=== PATIENT | female | born 1965 | race Caucasian/White ===

== ENCOUNTER → 2016-04-30 | Outpatient (CLI) | payer OTHER ==
--- NOTE | 2016-04-30 17:08 | XR ---
EXAMINATION TYPE: XR chest 2V DATE OF EXAM: 04/30/2016 5:04 PM COMPARISON: 11/19/2015 HISTORY: Chest pain TECHNIQUE: Frontal and lateral views of the chest are obtained. FINDINGS: Heart and mediastinum are normal. Lungs are clear of consolidation. There is minimal subse gmental atelectasis at the right lung base. There are no hilar masses. Bony thorax is intact. IMPRESSION: Mild subsegmental atelectasis at the right lung base without change compared to old exam . Normal heart.
== END | disposition home or self-care (01) ==
LOC: RADXRMAIN 16:49
PROVIDERS: ATTEND Family Medicine
DX: J98.11 Atelectasis (principal); J44.9 Chronic obstructive pulmonary disease, unspecified
CPT/HCPCS: 71020

== ENCOUNTER → 2016-08-23 | Outpatient (CLI) | payer OTHER ==
--- NOTE | 2016-08-23 14:21 | XR ---
Thoracic spine HISTORY: Back pain 2 views of the thoracic spine on 3 images Postop change noted incidentally in the lower cervical spine. Thoracic vertebral bodies show preserve d height, alignment, and bone mineralization. There is multilevel spondylosis. Disc spaces relatively maintained IMPRESSION: Degenerative disc disease.
== END | disposition home or self-care (01) ==
LOC: RADXRMAIN 13:15
PROVIDERS: ATTEND Family Medicine
DX: M51.34 Other intervertebral disc degeneration, thoracic region (principal)
CPT/HCPCS: 72072

== ENCOUNTER → 2016-10-11 | Outpatient (CLI) | payer OTHER ==
--- NOTE | 2016-10-11 08:54 | US ---
EXAMINATION TYPE: US abdomen complete DATE OF EXAM: 10/11/2016 COMPARISON: Previous study dated 01/23/2014. CLINICAL HISTORY: R94.5 ABN LIVER FUNCTIONS. ABN LFT's EXAM MEASUREMENTS: Liver Length: 20.0 cm Gallbladder Wall: 0.2 cm CBD: 0.5 cm Spleen: 8.9 cm Right Kidney: 10.8 x 4.1 x 4.5 cm Left Kidney: 10.6 x 5.2 x 5.0 cm Pancreas: wnl, tail obscured by overlying bowel gas Liver: Enlarged, heterogeneous with fatty sparing near GB Gallbladder: wnl Evidence for sonographic Vuogn's sign: No CBD: wnl Spleen: wnl Right Kidney: wnl Left Kidney: wnl Upper IVC: wnl Abd Aorta: wnl Limited views of the pancreas are normal. The liver is enlarged measuring 20 cm. The liver parenchyma slightly heterogenous. There is some foca l fatty sparing near the gallbladder fossa. The gallbladder is normal. There is no evidence of cholelithiasis. The gallbladder wall measures 2 mm . The distal common hepatic duct measures 5 mm. Both kidneys are normal. The spleen is normal in size. Visualized portions of aorta and IVC are normal. IMPRESSION: HEPATOMEGALY WITH PROBABLE FATTY INFILTRATION OF THE LIVER.
== END | disposition home or self-care (01) ==
LOC: RADUSWWP 08:23
PROVIDERS: ATTEND Family Medicine
DX: R16.0 Hepatomegaly, not elsewhere classified (principal); R94.5 Abnormal results of liver function studies
CPT/HCPCS: 76700

== ENCOUNTER → 2018-03-06 | Outpatient (CLI) | payer OTHER ==
--- NOTE | 2018-03-06 14:00 | XR ---
EXAMINATION TYPE: XR chest 2V DATE OF EXAM: 03/06/2018 COMPARISON: 04/30/2016 TECHNIQUE: PA and lateral views submitted. HISTORY: COPD and difficulty breathing FINDINGS: The lungs are clear and there is no pneumothorax, pleural effusion, or focal pneumonia. Arthropathy of the shoulders. Postsurgical change overlying the cervical spine. No overt failure. Hypertrophic c hanges of vertebral column. IMPRESSION: 1. No acute process.
== END ==
LOC: RADXRMAIN 13:14
PROVIDERS: ATTEND Family Medicine
DX: J44.1 Chronic obstructive pulmonary disease with (acute) exacerbation (principal)
CPT/HCPCS: 71046

== ENCOUNTER 2018-04-05 11:55 | Emergency (ER) | payer OTHER ==
[2018-04-05 12:01] VITALS: BP 128/83; PULSE 107; RESP 18; TEMP 98.2
--- NOTE | 2018-04-05 12:25 | ED ---
Female Urogenital HPI - General Chief complaint: Urogenital Stated complaint: painful urination Time Seen by Provider: 04/05/18 12:07 Source: patient, RN notes reviewed Mode of arrival: ambulatory Limitations: no limitations - History of Present Illness Initial comments: 52-year-old female presented emergency department with chief complaint of dysuria. Patient states started last 24 hours. Patient states that she has urinary frequency, small urine output at that time. Denies any flank pain, fever or chills. She does have some lower abdominal discomfort. Patient has had prior kidney stones and prior urinary tract infection. Patient denies any nausea vomiting diarrhea constipation. - Related Data Home Medications Medication Instructions Recorded Confirmed Albuterol Nebulized [Ventolin 2.5 mg INHALATION RT-Q4H PRN 09/04/15 04/05/18 Nebulized] Gabapentin [Neurontin] 100 mg PO TID PRN 04/05/18 04/05/18 Previous Rx's Medication Instructions Recorded Cephalexin [Keflex] 500 mg PO Q8HR #21 cap 04/05/18 Phenazopyridine [Pyridium] 200 mg PO TID #6 tablet 04/05/18 Allergies Allergy/AdvReac Type Severity Reaction Status Date / Time adhesive tape Allergy Rash/Hives Verified 04/05/18 12:21 pseudoephedrine sulfate Allergy Unknown Verified 04/05/18 12:21 [From Claritin-D 12 Hour] loratadine AdvReac Unknown Verified 04/05/18 12:21 sulfamethoxazole AdvReac Itching Verified 04/05/18 12:21 [From Bactrim] trimethoprim [From Bactrim] AdvReac Itching Verified 04/05/18 12:21 Review of Systems ROS Statement: Those systems with pertinent positive or pertinent negative responses have been documented in the HPI. ROS Other: All systems not noted in ROS Statement are negative. Past Medical History Past Medical History: Asthma, COPD, GERD/Reflux, Hearing Disorder / Deafness, Liver Disease, Osteoarthritis (OA), Pneumonia Additional Past Medical History / Comment(s): CHRONIC COUGH/SINUS PROBLEMS/DIFF HEARING LT ear, uterine FIBROIDS-hysterectomy, pancreatitis, bronchits, "had x1 seizure after taking claritin d", uti's kidney stone-passed on her own, cervical pain with recent surgery and post op abscess treated with ABX, "spinal stenosis", back pain, "abd hernia", fatty liver, glaucoma bilaterally. History of Any Multi-Drug Resistant Organisms: MRSA Date of last positivie culture/infection: 09/2012 MDRO Source:: Lungs Past Surgical History: Breast Surgery, Hysterectomy Additional Past Surgical History / Comment(s): 12/08/15 cervical fusion, BREAST AUGMENTATION bilaterally, colonoscopy-normal, x2, D&C, bilateral eye surgery twice for glaucoma. Past Anesthesia/Blood Transfusion Reactions: Motion Sickness Additional Past Anesthesia/Blood Transfusion Reaction / Comment(s): clausterphobia Past Psychological History: Depression Smoking Status: Current every day smoker Past Alcohol Use History: Occasional Past Drug Use History: Marijuana - Past Family History Mother Family Medical History: Congestive Heart Failure (CHF), Diabetes Mellitus, Hyperlipidemia, Hypertension Additional Family Medical History / Comment(s): pacemaker/aicd Father Family Medical History: Myocardial Infarction (ME) Additional Family Medical History / Comment(s): CABG General Exam Limitations: no limitations General appearance: alert, in no apparent distress Head exam: Present: atraumatic, normocephalic, normal inspection Respiratory exam: Present: normal lung sounds bilaterally. Absent: respiratory distress, wheezes, rales, rhonchi, stridor Cardiovascular Exam: Present: regular rate, normal rhythm, normal heart sounds. Absent: systolic murmur, diastolic murmur, rubs, gallop, clicks GI/Abdominal exam: Present: soft, normal bowel sounds. Absent: distended, tenderness, guarding, rebound, rigid Back exam: Absent: CVA tenderness (R), CVA tenderness (L) Skin exam: Present: warm, dry, intact, normal color. Absent: rash Course Vital Signs 04/05/18 11:58 Temperature 98.2 F Pulse Rate 107 H Respiratory 18 Rate Blood Pressure 128/83 O2 Sat by Pulse 99 Oximetry Medical Decision Making - Medical Decision Making 52-year-old female presented emergency department for urinary frequency, dysuria. Patient went of urinary tract infection. She has no flank pain no localized abdominal pain. Patient treated with antibiotics at this time will also be given Pyridium to help her symptoms. Patient will increase fluid intake and return for any worsening symptoms. - Lab Data Lab Results 04/05/18 Range/Units 12:34 Urine Color Yellow Urine Appearance Turbid H (Clear) Urine pH 6.5 (5.0-8.0) Ur Specific [place] 1.017 (1.001-1.035) Urine Protein 1+ H (Negative) Urine Glucose (UA) Negative (Negative) Urine Ketones Negative (Negative) Urine Blood Large H (Negative) Urine Nitrite Negative (Negative) Urine Bilirubin Negative (Negative) Urine Urobilinogen <2.0 (<2.0) mg/dL Ur Leukocyte Esterase Large H (Negative) Urine RBC 132 H (0-5) /hpf Urine WBC >182 H (0-5) /hpf Ur Squamous Epith Cells 3 (0-4) /hpf Urine Bacteria Few H (None) /hpf Disposition Clinical Impression: UTI (urinary tract infection) Disposition: HOME SELF-CARE Condition: Stable Instructions: Urinary Tract Infection in Women (ED) Additional Instructions: Please return to the Emergency Department if symptoms worsen or any other concerns. Prescriptions: Cephalexin [Keflex] 500 mg PO Q8HR #21 cap Phenazopyridine [Pyridium] 200 mg PO TID #6 tablet Is patient prescribed a controlled substance at d/c from ED?: No Referrals: Joanie Carlson MD [Primary Care Provider] - 1-2 days Time of Disposition: 13:01
[2018-04-05 12:55] LABS: Appearance,Urine Turbid (Clear); Bacteria,Urine Few /hpf; Bilirubin,Urine Negative (Negative); Blood,Urine Large (Negative); Color,Urine Yellow; Glucose,Urine (UA) Negative (Negative); Ketones,Urine Negative (Negative); Leukocyte Esterase,Urine Large (Negative); Nitrite,Urine Negative (Negative); PH, Urine 6.5 (5.0-8.0); Protein,Urine 1+ (Negative); RBC,Urine 132 /hpf (0-5); Specific Gravity,Urine 1.017 (1.001-1.035); Squamous Epithelial Cell,Urine 3 /hpf (0-4); Urobilinogen,Urine <2.0 mg/dL (<2.0)
== END 2018-04-05 13:08 | disposition home or self-care (01) ==
LOC: EC 11:55
DX: N39.0 Urinary tract infection, site not specified (principal); J44.9 Chronic obstructive pulmonary disease, unspecified; H91.92 Unspecified hearing loss, left ear; F17.200 Nicotine dependence, unspecified, uncomplicated; Z88.2 Allergy status to sulfonamides; Z88.8 Allergy status to other drugs, medicaments and biological substances; Z91.09 Other allergy status, other than to drugs and biological substances; Z86.14 Personal history of Methicillin resistant Staphylococcus aureus infection; Z87.442 Personal history of urinary calculi; Z98.1 Arthrodesis status; Z87.39 Personal history of other diseases of the musculoskeletal system and connective tissue; Z87.42 Personal history of other diseases of the female genital tract; Z90.710 Acquired absence of both cervix and uterus
CPT/HCPCS: 81001; 87086; 99283

== ENCOUNTER 2019-04-03 18:41 | Observation (INO) | payer OTHER ==
[2019-04-03] MEDS ORDERED: ASPIRIN 81 MG PO STA (19:18)
[2019-04-03] MEDS ORDERED: NITROGLYCERIN OINT 1 INCH/GM PACKET TOPICAL STA (19:18)
--- NOTE | 2019-04-03 19:25 | ED ---
General Adult HPI - General Chief complaint: Chest Pain Stated complaint: Chest pain Time Seen by Provider: 04/03/19 18:45 Source: patient, RN notes reviewed, old records reviewed Mode of arrival: wheelchair Limitations: no limitations - History of Present Illness Initial comments: This is a 53-year-old female presents emergency Department with a history of smoking and she states high cholesterol. Patient states takes no medicine for cholesterol. Patient states she also has a strong history in her family for heart disease. Patient comes in today because of arthritic prior to arrival he started having anterior chest pain as well as difficulty breathing. Patient states she's been coughing for 2-3 days now but she's had no real sputum production. Patient states she had no fever or chills. Patient denies any abdominal pain. Patient denies nausea vomiting. Patient denies any diaphoretic episodes. Patient denies any lightheadedness dizziness or near syncopal episode. Patient denies headache patient denies numbness weakness. Denies any swelling in the legs or calf tenderness. - Related Data Home Medications Medication Instructions Recorded Confirmed Albuterol Nebulized [Ventolin 2.5 mg INHALATION RT-Q4H PRN 09/04/15 04/05/18 Nebulized] Gabapentin [Neurontin] 100 mg PO TID PRN 04/05/18 04/05/18 Previous Rx's Medication Instructions Recorded Cephalexin [Keflex] 500 mg PO Q8HR #21 cap 04/05/18 Phenazopyridine [Pyridium] 200 mg PO TID #6 tablet 04/05/18 Allergies Allergy/AdvReac Type Severity Reaction Status Date / Time adhesive tape Allergy Rash/Hives Verified 04/03/19 18:45 pseudoephedrine sulfate Allergy Unknown Verified 04/03/19 18:45 [From Claritin-D 12 Hour] loratadine AdvReac Unknown Verified 04/03/19 18:45 sulfamethoxazole AdvReac Itching Verified 04/03/19 18:45 [From Bactrim] trimethoprim [From Bactrim] AdvReac Itching Verified 04/03/19 18:45 Review of Systems ROS Statement: Those systems with pertinent positive or pertinent negative responses have been documented in the HPI. ROS Other: All systems not noted in ROS Statement are negative. Past Medical History Past Medical History: Asthma, COPD, GERD/Reflux, Hearing Disorder / Deafness, Liver Disease, Osteoarthritis (OA), Pneumonia Additional Past Medical History / Comment(s): CHRONIC COUGH/SINUS PROBLEMS/DIFF HEARING LT ear, uterine FIBROIDS-hysterectomy, pancreatitis, bronchits, "had x1 seizure after taking claritin d", uti's kidney stone-passed on her own, cervical pain with recent surgery and post op abscess treated with ABX, "spinal stenosis", back pain, "abd hernia", fatty liver, glaucoma bilaterally. History of Any Multi-Drug Resistant Organisms: MRSA Date of last positivie culture/infection: 09/2012 MDRO Source:: Lungs Past Surgical History: Breast Surgery, Hysterectomy Additional Past Surgical History / Comment(s): 12/08/15 cervical fusion, BREAST AUGMENTATION bilaterally, colonoscopy-normal, x2, D&C, bilateral eye surgery twice for glaucoma. Past Anesthesia/Blood Transfusion Reactions: Motion Sickness Additional Past Anesthesia/Blood Transfusion Reaction / Comment(s): jett terphobia Past Psychological History: Depression Smoking Status: Current every day smoker Past Alcohol Use History: Occasional Past Drug Use History: Marijuana - Past Family History Mother Family Medical History: Congestive Heart Failure (CHF), Diabetes Mellitus, Hyperlipidemia, Hypertension Additional Family Medical History / Comment(s): pacemaker/aicd Father Family Medical History: Myocardial Infarction (ID) Additional Family Medical History / Comment(s): CABG General Exam - General Exam Comments Initial Comments: GENERAL: Patient is well-developed and well-nourished. Patient is nontoxic and well- hydrated and is in mild distress. ENT: Neck is soft and supple. No significant lymphadenopathy is noted. Oropharynx is clear. Moist mucous membranes. Neck has full range of motion without eliciting any pain. EYES: The sclera were anicteric and conjunctiva were pink and moist. Extraocular movements were intact and pupils were equal round and reactive to light. Eyelids were unremarkable. PULMONARY: Unlabored respirations. Good breath sounds bilaterally. No audible rales rh onchi or wheezing was noted. CARDIOVASCULAR: There is a regular rate and rhythm without any murmurs gallops or rubs. ABDOMEN: Soft and nontender with normal bowel sounds. No palpable organomegaly was noted. There is no palpable pulsatile mass. SKIN: Skin is clear with no lesions or rashes and otherwise unremarkable. NEUROLOGIC: Patient is alert and oriented x3. Cranial nerves II through XII are grossly intact. Motor and sensory are also intact. Normal speech, volume and content. Symmetrical smile. MUSCULOSKELETAL: Normal extremities with adequate strength and full range of motion. No lower extremity swelling or edema. No calf tenderness. LYMPHATICS: No significant lymphadenopathy is noted PSYCHIATRIC: Normal psychiatric evaluation. Limitations: no limitations Course Vital Signs 04/03/19 04/03/19 18:43 20:26 Temperature 98.4 F Pulse Rate 119 H 112 H Respiratory 22 22 Rate Blood Pressure 186/95 176/118 O2 Sat by Pulse 97 100 Oximetry Medical Decision Making - Medical Decision Making EKG shows sinus tachycardia at 115 bpm [place] interval is on a 44 [place] is 90 QT interval 350 QTC is 44. Patient's EKG shows no ST segment elevation Chest x-ray shows no acute abnormality. I spoke with [facility] hospitalist and he agreed to admit the patient admitted the patient wrote admitting orders - Lab Data Result diagrams: 04/03/19 19:12 04/03/19 19:12 Lab Results 04/03/19 04/03/19 04/03/19 Range/Units 19:12 19:12 19:12 WBC 13.7 H (3.8-10.6) k/uL RBC 4.22 (3.80-5.40) m/uL Hgb 14.2 (11.4-16.0) gm/dL Hct 41.2 (34.0-46.0) % MCV 97.5 (80.0-100.0) fL MCH 33.5 (25.0-35.0) pg MCHC 34.4 (31.0-37.0) g/dL RDW 12.5 (11.5-15.5) % Plt Count 265 (150-450) k/uL Neutrophils % 81 % Lymphocytes % 10 % Monocytes % 3 % Eosinophils % 3 % Basophils % 1 % Neutrophils # 11.1 H (1.3-7.7) k/uL Lymphocytes # 1.4 (1.0-4.8) k/uL Monocytes # 0.5 (0-1.0) k/uL Eosinophils # 0.4 (0-0.7) k/uL Basophils # 0.1 (0-0.2) k/uL PT 9.6 (9.0-12.0) sec INR 0.9 (<1.2) APTT 22.9 (22.0-30.0) sec D-Dimer 0.48 (<0.60) mg/L FEU Sodium 140 (137-145) mmol/L Potassium 3.8 (3.5-5.1) mmol/L Chloride 105 (98-107) mmol/L Carbon Dioxide 25 (22-30) mmol/L Anion Gap 10 mmol/L BUN 7 (7-17) mg/dL Creatinine 0.61 (0.52-1.04) mg/dL Est GFR (CKD-EPI)AfAm >90 (>60 ml/min/1.73 sqM) Est GFR (CKD-EPI)NonAf >90 (>60 ml/min/1.73 sqM) Glucose 157 H (74-99) mg/dL Calcium 9.1 (8.4-10.2) mg/dL Magnesium 1.5 L (1.6-2.3) mg/dL Total Bilirubin 0.4 (0.2-1.3) mg/dL AST 34 (14-36) U/L ALT 25 (4-34) U/L Alkaline Phosphatase 113 (38-126) U/L Troponin I (0.000-0.034) ng/mL NT-Pro-B Natriuret Pep pg/mL Total Protein 7.4 (6.3-8.2) g/dL Albumin 4.4 (3.5-5.0) g/dL Influenza Type A RNA (Not Detectd) Influenza Type B (PCR) (Not Detectd) 04/03/19 04/03/19 04/03/19 Range/Units 19:12 19:12 19:30 WBC (3.8-10.6) k/uL RBC (3.80-5.40) m/uL Hgb (11.4-16.0) gm/dL Hct (34.0-46.0) % MCV (80.0-100.0) fL MCH (25.0-35.0) pg MCHC (31.0-37.0) g/dL RDW (11.5-15.5) % Plt Count (150-450) k/uL Neutrophils % % Lymphocytes % % Monocytes % % Eosinophils % % Basophils % % Neutrophils # (1.3-7.7) k/uL Lymphocytes # (1.0-4.8) k/uL Monocytes # (0-1.0) k/uL Eosinophils # (0-0.7) k/uL Basophils # (0-0.2) k/uL PT (9.0-12.0) sec INR (<1.2) APTT (22.0-30.0) sec D-Dimer (<0.60) mg/L FEU Sodium (137-145) mmol/L Potassium (3.5-5.1) mmol/L Chloride (98-107) mmol/L Carbon Dioxide (22-30) mmol/L Anion Gap mmol/L BUN (7-17) mg/dL Creatinine (0.52-1.04) mg/dL Est GFR (CKD-EPI)AfAm (>60 ml/min/1.73 sqM) Est GFR (CKD-EPI)NonAf (>60 ml/min/1.73 sqM) Glucose (74-99) mg/dL Calcium (8.4-10.2) mg/dL Magnesium (1.6-2.3) mg/dL Total Bilirubin (0.2-1.3) mg/dL AST (14-36) U/L ALT (4-34) U/L Alkaline Phosphatase (38-126) U/L Troponin I <0.012 (0.000-0.034) ng/mL NT-Pro-B Natriuret Pep 99 pg/mL Total Protein (6.3-8.2) g/dL Albumin (3.5-5.0) g/dL Influenza Type A RNA Not Detected (Not Detectd) Influenza Type B (PCR) Not Detected (Not Detectd) Disposition Clinical Impression: Chest pain Disposition: ADMITTED IP TO THIS HOSP Referrals: Joanie Carlson MD [Primary Care Provider] - 1-2 days Time of Disposition: 20:30
[2019-04-03 19:33] LABS: Basophils # (A) 0.1 k/uL (0-0.2); Basophils % (A) 1 %; Eosinophils # (A) 0.4 k/uL (0-0.7); Eosinophils % (A) 3 %; HCT 41.2 % (34.0-46.0); HGB 14.2 gm/dL (11.4-16.0); Lymphocytes # (A) 1.4 k/uL (1.0-4.8); Lymphocytes % (A) 10 %; MCH 33.5 pg (25.0-35.0); MCHC 34.4 g/dL (31.0-37.0); MCV 97.5 fL (80.0-100.0); Mean Platelet Volume 8.2; Monocytes # (A) 0.5 k/uL (0-1.0); Monocytes % (A) 3 %; Neutrophils # (A) 11.1 k/uL (1.3-7.7); Neutrophils % (A) 81 %; Platelet Count 265 k/uL (150-450); RBC 4.22 m/uL (3.80-5.40); RDW 12.5 % (11.5-15.5); WBC 13.7 k/uL (3.8-10.6)
[2019-04-03 19:43] LABS: ALT 25 U/L (4-34); AST 34 U/L (14-36); African American GFR (CKD) >90 (>60 ml/min/1.73 sqM); Albumin 4.4 g/dL (3.5-5.0); Alkaline Phosphatase 113 U/L (38-126); Anion Gap 10 mmol/L; Blood Urea Nitrogen 7 mg/dL (7-17); Calcium 9.1 mg/dL (8.4-10.2); Carbon Dioxide 25 mmol/L (22-30); Chloride 105 mmol/L (98-107); Glucose 157 mg/dL (74-99); Magnesium 1.5 mg/dL (1.6-2.3); Non-African American GFR(CKD) >90 (>60 ml/min/1.73 sqM); Potassium 3.8 mmol/L (3.5-5.1); Sodium 140 mmol/L (137-145); Total Bilirubin 0.4 mg/dL (0.2-1.3); Total Protein 7.4 g/dL (6.3-8.2)
[2019-04-03 19:52] LABS: D-Dimer 0.48 mg/L FEU (<0.60); INR 0.9 (<1.2); Partial Thromboplastin Time 22.9 sec (22.0-30.0); Prothrombin Time 9.6 sec (9.0-12.0)
--- NOTE | 2019-04-03 19:54 | XR ---
EXAMINATION TYPE: XR chest 2V DATE OF EXAM: 04/03/2019 COMPARISON: 03/06/2018 HISTORY: Chest pain TECHNIQUE: FINDINGS: Heart is normal. Lungs are clear. Costophrenic angles are clear. Bony thorax is intact. The re are chest leads. There is cervical spine fusion surgery. IMPRESSION: Normal chest. No change.
[2019-04-03] MEDS ORDERED: NITROGLYCERIN SL TABS 0.4 MG TAB SUBLINGUAL PRN (20:34)
[2019-04-03] MEDS: NITROGLYCERIN OINT 1 INCH/GM PACKET TOPICAL SCH (23:22)
[2019-04-04] MEDS: ALBUTEROL NEBULIZED 2.5 MG/3 ML INHALATION PRN ×5 (03:43→19:54)
[2019-04-04] MEDS: NITROGLYCERIN OINT 1 INCH/GM PACKET TOPICAL SCH (05:18)
[2019-04-04 06:37] LABS: Cholesterol 242 mg/dL (<200); HDL Cholesterol 56 mg/dL (40-60); LDL Cholesterol,Calculated 143 mg/dL (0-99); Triglycerides 216 mg/dL (<150)
[2019-04-04] MEDS ORDERED: INFLUENZA VACCINE (6 MOS+) 60 MCG/0.5 ML SYRINGE IM ONE (09:00)
--- NOTE | 2019-04-04 09:54 | P.CRDCN ---
History of Present Illness History of present illness: HISTORY OF PRESENTING ILLNESS This is a pleasant 53-year-old female past medical history significant for asthma, COPD, hypertension and dyslipidemia in the past that had improved a fter weight loss and chronic nicotine dependence. He denies prior history of coronary artery disease and does not follow in the office with a baker test for any reason. We have been asked to see in consultation for chest pain. She states over the weekend her vehicle broke down and she was forced to walk over 2 miles in the rain. Later that night she began coughing significantly. Since that time she has been increasingly short of breath and using her inhalers [id number]. She does not have updrafts at home. Yesterday she developed a tightness in her chest associated with cough and deep breathing. There is no radiation to the arm, back, neck or jaw. Her pain is ongoing when she coughs or takes a deep breath. DIAGNOSTICS EKG reveals sinus tachycardia heart rate of 115 with right atrial enlargement. No acute ST or T wave abnormalities noted. Chest xray negative for an acute cardiopulmonary process. Laboratory reviewed, WBC 13.7, cardiac enzymes negative 3, creatinine 0.61, d- dimer 0.48 and LDL 143. She takes no daily cardiac medications. REVIEW OF SYSTEMS At the time of my exam: CONSTITUTIONAL: Denies fever or chills. CARDIOVASCULAR: Complains of pleuritic chest pain and shortness of breath. Denies exertional chest pain, orthopnea, PND or palpitations. RESPIRATORY: Complains of cough. GASTROINTESTINAL: Denies abdominal pain, diarrhea, constipation, nausea or vo miting. MUSCULOSKELETAL: Denies myalgias. NEUROLOGIC: Denies numbness, tingling or weakness. ENDOCRINE: Denies fatigue, weight change, polydipsia or polyurina. GENITOURINARY: Denies burning, hematuria or urgency with micturation. HEMATOLOGIC: Denies history of anemia or bleeding. PHYSICAL EXAMINATION Blood pressure 159/103 heart rate 101 afebrile and maintaining oxygen saturation on nasal cannula. CONSTITUTIONAL: No apparent distress. HEENT: Head is normocephalic. Pupils are equal, round. Sclerae anicteric. Mucous membranes of the mouth are moist. No JVD. No carotid bruit. CHEST EXAMINATION: Lungs are clear to auscultation. No chest wall tenderness is noted on palpation or with deep breathing. Diminished bilaterally. HEART EXAMINATION: Regular rate and rhythm. S1, S2 heard. No murmurs, gallops or rub. ABDOMEN: Soft, nontender. Positive bowel sounds. EXTREMITIES: 2+ peripheral pulses, no lower extremity edema and no calf tenderness. NEUROLOGIC EXAMINATION: Patient is awake, alert and oriented x3. ASSESSMENT Pleuritic chest pain, atypical for angina. An acute coronary event has been ruled out. Cough and shortness of breath likely related to bronchitis with an exacerbation of COPD Right atrial enlargement Hypertension Dyslipidemia Chronic nicotine dependence PLAN An acute coronary event has been ruled out. Obtain 2-D echocardiogram and Doppler study to assess cardiac structure and function. Initiate atorvastatin 40 mg daily and amlodipine 5 mg daily. Recommend lifestyle modifications for lowering of LDL cholesterol as well as smoking cessation. No stress testing at this time due to cough and COPD exacerbation, will recommend outpatient stress testing when her upper respiratory illness has improved. Follow-up with Dr. Infante in 2-3 weeks. Thank you kindly for this consultation. Nurse Practitioner note has been reviewed, I agree with a documented findings a nd plan of care. Patient was seen and examined. Past Medical History Past Medical History: Asthma, COPD, GERD/Reflux, Liver Disease, Osteoarthritis (OA), Pneumonia Additional Past Medical History / Comment(s): CHRONIC COUGH/SINUS PROBLEMS, uterine FIBROIDS-hysterectomy, pancreatitis, bronchits, "had x1 seizure after taking claritin d", uti's kidney stone-passed on her own, cervical pain with recent surgery and post op abscess treated with ABX, "spinal stenosis", back pain, "abd hernia", fatty liver, glaucoma bilaterally. History of Any Multi-Drug Resistant Organisms: MRSA Date of last positivie culture/infection: 09/2012 MDRO Source:: Lungs Past Surgical History: Breast Surgery, Hysterectomy Additional Past Surgical History / Comment(s): 12/08/15 cervical fusion, BREAST AUGMENTATION bilaterally, colonoscopy-normal, x2, D&C, bilateral eye surgeryx 4 glaucoma Past Anesthesia/Blood Transfusion Reactions: Motion Sickness Additional Past Anesthesia/Blood Transfusion Reaction / Comment(s): clausterphobia Past Psychological History: Depression Additional Psychological History / Comment(s): Pt states has some major depression. Denies any thoughts of harming self, no thoughts of suicide,no hopelessness. Pt states about 5 yrs ago she did attempt suicice with OD. She is seen at [facility] by Isatu Govea. She lives at home with her mother and brother and her 13 yr old child. She is independent. Smoking Status: Current every day smoker Past Alcohol Use History: Occasional Additional Past Alcohol Use History / Comment(s): Pt states she started smoking in 1981 and is currently trying to quit. She states she is down to 2 cigarettes a day since November 2015. She states she used to drink heavy but cut down to less than 7 drink per week. Past Drug Use History: Marijuana Additional Drug Use History / Comment(s): Past use of marijuana when younger. - Past Family History Mother Family Medical History: Congestive Heart Failure (CHF), Diabetes Mellitus, Hyperlipidemia, Hypertension Additional Family Medical History / Comment(s): pacemaker/aicd Father Family Medical History: Myocardial Infarction ([place]) Additional Family Medical History / Comment(s): CABG Medications and Allergies Home Medications Medication Instructions Recorded Confirmed Type Albuterol Inhaler [Ventolin Hfa 2 puff INHALATION RT-Q6H PRN 04/03/19 04/03/19 History Inhaler] Allergies Allergy/AdvReac Type Severity Reaction Status Date / Time adhesive tape Allergy Rash/Hives Verified 04/03/19 21:16 pseudoephedrine sulfate Allergy Unknown Verified 04/03/19 21:16 [From Claritin-D 12 Hour] loratadine AdvReac Unknown Verified 04/03/19 21:16 sulfamethoxazole AdvReac Itching Verified 04/03/19 21:16 [From Bactrim] trimethoprim [From Bactrim] AdvReac Itching Verified 04/03/19 21:16 Physical Exam Vitals: Vital Signs Temp Pulse Pulse Pulse Resp BP BP 04/04/19 07:41 98.4 F 101 H 18 04/04/19 07:29 89 04/04/19 07:17 88 04/04/19 03:56 98 04/04/19 03:43 98 04/04/19 03:30 98.0 F 100 18 167/97 04/03/19 22:05 99.1 F 109 H 16 164/97 04/03/19 21:39 106 H 20 172/114 04/03/19 20:26 112 H 22 176/118 04/03/19 18:43 98.4 F 119 H 22 186/95 BP Pulse Ox 04/04/19 07:41 159/103 95 04/04/19 07:29 04/04/19 07:17 04/04/19 03:56 04/04/19 03:43 04/04/19 03:30 100 04/03/19 22:05 97 04/03/19 21:39 98 04/03/19 20:26 100 04/03/19 18:43 97 Intake and Output 04/03/19 04/04/19 04/04/19 22:59 06:59 14:59 Other: # Voids 1 Weight 68.039 kg Results 04/03/19 19:12 04/03/19 19:12 Cardiac Enzymes 04/03/19 04/03/19 04/04/19 Range/Units 19:12 19:12 01:18 AST 34 (14-36) U/L Troponin I <0.012 <0.012 (0.000-0.034) ng/mL 04/04/19 Range/Units 06:13 AST (14-36) U/L Troponin I <0.012 (0.000-0.034) ng/mL Coagulation 04/03/19 Range/Units 19:12 PT 9.6 (9.0-12.0) sec APTT 22.9 (22.0-30.0) sec Lipids 04/04/19 Range/Units 06:13 Triglycerides 216 H (<150) mg/dL Cholesterol 242 H (<200) mg/dL HDL Cholesterol 56 (40-60) mg/dL CBC 04/03/19 Range/Units 19:12 WBC 13.7 H (3.8-10.6) k/uL RBC 4.22 (3.80-5.40) m/uL Hgb 14.2 (11.4-16.0) gm/dL Hct 41.2 (34.0-46.0) % Plt Count 265 (150-450) k/uL Comprehensive Metabolic Panel 04/03/19 Range/Units 19:12 Sodium 140 (137-145) mmol/L Potassium 3.8 (3.5-5.1) mmol/L Chloride 105 (98-107) mmol/L Carbon Dioxide 25 (22-30) mmol/L BUN 7 (7-17) mg/dL Creatinine 0.61 (0.52-1.04) mg/dL Glucose 157 H (74-99) mg/dL Calcium 9.1 (8.4-10.2) mg/dL AST 34 (14-36) U/L ALT 25 (4-34) U/L Alkaline Phosphatase 113 (38-126) U/L Total Protein 7.4 (6.3-8.2) g/dL Albumin 4.4 (3.5-5.0) g/dL Current Medications Generic Name Dose Route Start Last Admin Trade Name Freq PRN Reason Stop Dose Admin Albuterol Sulfate 2.5 mg 04/04/19 03:13 04/04/19 07:15 Ventolin Nebulized INHALATION 2.5 mg RT-QID PRN Administration Shortness Of Breath Or Wheezing Aspirin 325 mg 04/04/19 09:00 Aspirin PO DAILY PABLO Influenza Virus Vaccine Quadrival 60 mcg 04/04/19 09:00 Flulaval Vaccine [id number] IM 04/04/19 09:01 .ONCE ONE Nitroglycerin 0.4 mg 04/03/19 20:34 Nitrostat SUBLINGUAL Q5M PRN Chest Pain Nitroglycerin 1 inch 04/04/19 00:00 04/04/19 05:18 Nitro-Bid Oint TOPICAL Not Given Q6HR PABLO Intake and Output 04/03/19 04/04/19 04/04/19 22:59 06:59 14:59 Other: # Voids 1 Weight 68.039 kg 04/03/19 19:12 04/03/19 19:12
[2019-04-04] MEDS ORDERED: guaiFENesin-DM 100-10MG/5ML 10 ML CUP PO PRN (12:02)
--- NOTE | 2019-04-04 12:02 | P.HPIM ---
History of Present Illness This is a pleasant 53 years old female with past medical history of asthma/COPD, gastroesophageal reflux disease, liver disease/fatty liver, osteoarthritis, status post hysterectomy, cervical pain status post surgery and spinal stenosis with chronic back pain Presents because of dyspnea. Patient she was walking and are any whether and how same time she started having coughing with shortness of breath and chest tightness. Also she had pain in her leg like, her pain is mild got aggravated by coughing significantly. Patient was admitted with a diagnosis of chest pain however her urologist thinks [place] COPD exacerbation. Currently patient feels better however she still feels chest tightness and just some coughing although she thinks that bronchodilator therapy up her coughing and pain. No abdominal complaint, no change in urine or bowel habits. No leg pain. No hemoptysis. No fever. Patient state that she has both history of asthma and COPD, she cannot remember how long exactly she is having these problems. She does not follow up with credit associate. She does not use oxygen on steroids at home Vitals are stable, she was tachycardic but: Back to normal. Her WBC is 13.7 K. BMP is unremarkable, magnesium 1.[address], serial troponins are negative. EKG showing sinus tachycardia at [address]-T changes and QTC is 484. Chest x-ray: No acute process. Influenza is negative The emergency room patient was started on aspirin Review of Systems CONSTITUTIONAL: No fever, no malaise, no fatigue. HEENT: No recent visual problems or hearing problems. Denied any sore throat. CARDIOVASCULAR: No orthopnea, PND, no palpitations, no syncope. PULMONARY: No shortness of breath, no cough, no hemoptysis. GASTROINTESTINAL: No diarrhea, no nausea, no vomiting, no abdominal pain. Normoactive bowel sounds. NEUROLOGICAL: No headaches, no weakness, no numbness. HEMATOLOGICAL: Denies any bleeding or petechiae. GENITOURINARY: Denies any burning micturition, frequency, or urgency. MUSCULOSKELETAL/RHEUMATOLOGICAL: Denies any joint pain, swelling, or any muscle pain. ENDOCRINE: Denies any polyuria or polydipsia. Past Medical History Past Medical History: Asthma, COPD, GERD/Reflux, Liver Disease, Osteoarthritis (OA), Pneumonia Additional Past Medical History / Comment(s): CHRONIC COUGH/SINUS PROBLEMS, uterine FIBROIDS-hysterectomy, pancreatitis, bronchits, "had x1 seizure after taking claritin d", uti's kidney stone-passed on her own, cervical pain with recent surgery and post op abscess treated with ABX, "spinal stenosis", back pain, "abd hernia", fatty liver, glaucoma bilaterally. History of Any Multi-Drug Resistant Organisms: MRSA Date of last positivie culture/infection: 09/2012 MDRO Source:: Lungs Past Surgical History: Breast Surgery, Hysterectomy Additional Past Surgical History / Comment(s): 12/08/15 cervical fusion, BREAST AUGMENTATION bilaterally, colonoscopy-normal, x2, D&C, bilateral eye surgeryx 4 glaucoma Past Anesthesia/Blood Transfusion Reactions: Motion Sickness Additional Past Anesthesia/Blood Transfusion Reaction / Comment(s): clausterphobia Past Psychological History: Depression Additional Psychological History / Comment(s): Pt states has some major depression. Denies any thoughts of harming self, no thoughts of suicide,no hopelessness. Pt states about 5 yrs ago she did attempt suicice with OD. She is seen at [facility] by Isatu Govea. She lives at home with her mother and brother and her 13 yr old child. She is independent. Smoking Status: Current every day smoker Past Alcohol Use History: Occasional Additional Past Alcohol Use History / Comment(s): Pt states she started smoking in 1981 and is currently trying to quit. She states she is down to 2 cigarettes a day since November 2015. She states she used to drink heavy but cut down to less than 7 drink per week. Past Drug Use History: Marijuana Additional Drug Use History / Comment(s): Past use of marijuana when younger. - Past Family History Mother Family Medical History: Congestive Heart Failure (CHF), Diabetes Mellitus, Hyperlipidemia, Hypertension Additional Family Medical History / Comment(s): pacemaker/aicd Father Family Medical History: Myocardial Infarction ([place]) Additional Family Medical History / Comment(s): CABG Medications and Allergies Home Medications Medication Instructions Recorded Confirmed Type Albuterol Inhaler [Ventolin Hfa 2 puff INHALATION RT-Q6H PRN 04/03/19 04/03/19 History Inhaler] Allergies Allergy/AdvReac Type Severity Reaction Status Date / Time adhesive tape Allergy Rash/Hives Verified 04/03/19 21:16 pseudoephedrine sulfate Allergy Unknown Verified 04/03/19 21:16 [From Claritin-D 12 Hour] loratadine AdvReac Unknown Verified 04/03/19 21:16 sulfamethoxazole AdvReac Itching Verified 04/03/19 21:16 [From Bactrim] trimethoprim [From Bactrim] AdvReac Itching Verified 04/03/19 21:16 Physical Exam Vitals: Vital Signs Temp Pulse Pulse Pulse Resp BP BP 04/04/19 11:34 92 04/04/19 11:22 90 04/04/19 07:41 98.4 F 101 H 18 04/04/19 07:29 89 04/04/19 07:17 88 04/04/19 03:56 98 04/04/19 03:43 98 04/04/19 03:30 98.0 F 100 18 167/97 04/03/19 22:05 99.1 F 109 H 16 164/97 04/03/19 21:39 106 H 20 172/114 04/03/19 20:26 112 H 22 176/118 04/03/19 18:43 98.4 F 119 H 22 186/95 BP Pulse Ox 04/04/19 11:34 04/04/19 11:22 04/04/19 07:41 159/103 95 04/04/19 07:29 04/04/19 07:17 04/04/19 03:56 04/04/19 03:43 04/04/19 03:30 100 04/03/19 22:05 97 04/03/19 21:39 98 04/03/19 20:26 100 04/03/19 18:43 97 Intake and Output 04/03/19 04/04/19 04/04/19 22:59 06:59 14:59 Other: # Voids 1 Weight 68.039 kg GENERAL: The patient is alert and oriented x3, not in any acute distress. Well developed, well nourished. HEENT: Pupils are round and equally reacting to light. EOMI. No scleral icterus. No conjunctival pallor. Normocephalic, atraumatic. No pharyngeal erythema. No thyromegaly. CARDIOVASCULAR: S1 and S2 present. No murmurs, rubs, or gallops. -PULMONARY: Chest is clear to auscultation, bilateral scattered wheezing with prolonged expiration ABDOMEN: Soft, nontender, nondistended, normoactive bowel sounds. No palpable organomegaly. MUSCULOSKELETAL: No joint swelling or deformity. EXTREMITIES: No cyanosis, clubbing, or pedal edema. NEUROLOGICAL: Gross neurological examination did not reveal any focal deficits. SKIN: No rashes. No petechiae Results CBC & Chem 7: 04/03/19 19:12 04/03/19 19:12 Labs: Abnormal Lab Results - Last 24 Hours (Table) 04/03/19 04/03/19 04/04/19 Range/Units 19:12 19:12 06:13 WBC 13.7 H (3.8-10.6) k/uL Neutrophils # 11.1 H (1.3-7.7) k/uL Glucose 157 H (74-99) mg/dL Magnesium 1.5 L (1.6-2.3) mg/dL Triglycerides 216 H (<150) mg/dL Cholesterol 242 H (<200) mg/dL LDL Cholesterol, Calc 143 H (0-99) mg/dL Thrombosis Risk Factor Assmnt - Choose All That Apply Each Factor Represents 1 point: Age 41-60 years, Obesity (BMI >25) Thrombosis Risk Factor Assessment Total Risk Factor Score: 2 Thrombosis Risk Factor Assessment Level: Low Risk Assessment and Plan Assessment: Acute COPD exacerbation Upper respiratory tract infection, could be viral Gastroesophageal reflux disease Osteoarthritis liver disease/fatty liver Cervical pain status post surgery Spinal stenosis with chronic back pain Plan: This is a pleasant 53 years old female who presents with acute COPD exacerbation. Start patient on steroids, antibiotics, and continue with bronchodilator. Labs and medication were reviewed.. Continue same treatment. Continue with symptomatic treatment. Resume home medication. Monitor lytes and vitals. DVT and GI prophylaxis. Further recommendations of the clinical course of the patient DVT prophylaxis: Subcutaneous heparin GI Prophylaxis: Pepcid PT/OT: Pending Prognosis is guarded
[2019-04-04] MEDS: ATORVASTATIN 40 MG TAB PO SCH (12:16)
[2019-04-04] MEDS: ASPIRIN 325 MG TAB PO SCH (12:16)
[2019-04-04] MEDS: amLODIPine 5 MG TAB PO SCH (12:17)
[2019-04-04] MEDS: methylPREDNISolone SOD SUCCI 40 MG/ML 1 ML VIAL IV SCH ×2 (12:17→19:55)
[2019-04-04] MEDS: DOXYCYCLINE 100 MG in SODIUM CHLORIDE 0.9% 100 ML IVPB SCH ×2 (12:17→19:55)
--- NOTE | 2019-04-04 15:00 | ECHOF ---
Referral Reason:cp MEASUREMENTS -------- HEIGHT: 162.6 cm WEIGHT: 68.0 kg BP: 159/103 RVIDd: 2.8 cm (< 3.3) IVSd: 1.2 cm (0.6 - 1.1) LVIDd: 4.2 cm (3.9 - 5.3) LVPWd: 1.2 cm (0.6 - 1.1) IVSs: 1.7 cm LVIDs: 2.3 cm LVPWs: 1.6 cm LA Diam: 3.2 cm (2.7 - 3.8) LAESV Index (A-L): 12.22 ml/m Ao Diam: 2.9 cm (2.0 - 3.7) AV Cusp: 1.9 cm (1.5 - 2.6) MV EXCURSION: 13.117 mm (> 18.000) MV EF SLOPE: 80 mm/s (70 - 150) EPSS: 0.3 cm MV E Jeremy: 0.71 m/s MV DecT: 232 ms MV A Jeremy: 0.71 m/s MV E/A Ratio: 1.01 RAP: 5.00 mmHg RVSP: 29.15 mmHg FINDINGS -------- Sinus rhythm. This was a technically adequate study. The left ventricular size is normal. There is borderline concentric left ventricular hypertrophy. Overall left ventricular systolic function is normal with, an EF between 60 - 65 %. The right ventricle is normal in size. Normal LA size by volume 22+/-6 ml/m2. The right atrium is normal in size. Interatrial and interventricular septum intact. The aortic valve is trileaflet and appears structurally normal. The mitral valve is normal. Mild tricuspid regurgitation present. Right ventricular systolic pressure is normal at < 35 mmHg. Trace/mild (physiologic) pulmonic regurgitation. The aortic root size is normal. Normal inferior vena cava with normal inspiratory collapse consistent with estimated right atrial pre ssure of 5 mmHg. There is no pericardial effusion. CONCLUSIONS -------- 1. Sinus rhythm. 2. This was a technically adequate study. 3. The left ventricular size is normal. 4. There is borderline concentric left ventricular hypertrophy. 5. Overall left ventricular systolic function is normal with, an EF between 60 - 65 %. 6. The right ventricle is normal in size. 7. Normal LA size by volume 22+/-6 ml/m2. 8. The right atrium is normal in size. 9. Interatrial and interventricular septum intact. 10. The aortic valve is trileaflet and appears structurally normal. 11. The mitral valve is normal. 12. Mild tricuspid regurgitation present. 13. Right ventricular systolic pressure is normal at < 35 mmHg. 14. Trace/mild (physiologic) pulmonic regurgitation. 15. The aortic root size is normal. 16. Normal inferior vena cava with normal inspiratory collapse consistent with estimated right atrial pressure of 5 mmHg. 17. There is no pericardial effusion. COOKER SULFITE: WILLIE Tadeo
[2019-04-04 18:48] LABS: Basophils # (A) 0.2 k/uL (0-0.2); Basophils % (A) 2 %; Eosinophils # (A) 0.4 k/uL (0-0.7); Eosinophils % (A) 5 %; HCT 40.8 % (34.0-46.0); HGB 13.5 gm/dL (11.4-16.0); Lymphocytes # (A) 1.7 k/uL (1.0-4.8); Lymphocytes % (A) 21 %; MCH 33.6 pg (25.0-35.0); MCHC 33.1 g/dL (31.0-37.0); MCV 101.5 fL (80.0-100.0); Mean Platelet Volume 10.3; Monocytes # (A) 0.6 k/uL (0-1.0); Monocytes % (A) 7 %; Neutrophils % (A) 63 %; Platelet Count 236 k/uL (150-450); RBC 4.01 m/uL (3.80-5.40); RDW 12.6 % (11.5-15.5); WBC 7.9 k/uL (3.8-10.6)
[2019-04-04] MEDS: FAMOTIDINE 20 MG/2 ML VIAL IV SCH (19:55)
[2019-04-04] MEDS: HEPARIN SODIUM,PORCINE 5,000 UNIT/ML 1 ML VIAL SQ SCH (19:55)
[2019-04-05] MEDS: ALBUTEROL NEBULIZED 2.5 MG/3 ML INHALATION PRN ×2 (07:16→11:05)
[2019-04-05 07:19] VITALS: RESP 16
[2019-04-05 07:36] VITALS: BP 120/80; TEMP 97.9
[2019-04-05] MEDS: methylPREDNISolone SOD SUCCI 40 MG/ML 1 ML VIAL IV SCH (08:18)
[2019-04-05] MEDS: FAMOTIDINE 20 MG/2 ML VIAL IV SCH (08:18)
[2019-04-05] MEDS: HEPARIN SODIUM,PORCINE 5,000 UNIT/ML 1 ML VIAL SQ SCH (08:18)
[2019-04-05] MEDS: ATORVASTATIN 40 MG TAB PO SCH (08:19)
[2019-04-05] MEDS: amLODIPine 5 MG TAB PO SCH (08:19)
[2019-04-05] MEDS: ASPIRIN 325 MG TAB PO SCH (08:19)
[2019-04-05] MEDS: DOXYCYCLINE 100 MG in SODIUM CHLORIDE 0.9% 100 ML IVPB SCH (08:22)
[2019-04-05] MEDS ORDERED: predniSONE 20 MG TAB PO STA (10:41)
[2019-04-05] MEDS ORDERED: MAGNESIUM OXIDE 400 MG TAB PO SCH (11:00)
[2019-04-05 11:17] VITALS: PULSE 103
--- NOTE | 2019-04-05 11:19 | XR ---
EXAMINATION TYPE: XR chest 1V DATE OF EXAM: 04/05/2019 COMPARISON: 04/03/2019 HISTORY: Cough, bronchitis TECHNIQUE: Single frontal view of the chest is obtained. FINDINGS: There is no focal air space opacity, pleural effusion, or pneumothorax seen. The cardiac silhouette size is within normal limits. The osseous structures are intact. Heart is enlarged there is mild hyperinflation. Coarsened interstitium noted. IMPRESSION: Coarsened interstitium appears stable correlate for chronic interstitial lung disease or bronchitis
--- NOTE | 2019-04-05 11:51 | P.DS ---
Providers Date of admission: 04/03/19 20:34 Attending physician: Alison Flores Consults: 04/03/19 20:34 Consult Physician Urgent Consulting Provider: [facility] Consult Reason/Comments: Chest pain Do you want consulting provider notified?: Yes [facility]: Diagnoses: Acute COPD exacerbation Upper respiratory tract infection, could be viral Gastroesophageal reflux disease Osteoarthritis liver disease/fatty liver Cervical pain status post surgery Spinal stenosis with chronic back pain Hospital course: This is a pleasant 53 years old female with past medical history of asthma/COPD, gastroesophageal reflux disease, liver disease/fatty liver, osteoarthritis, status post hysterectomy, cervical pain status post surgery and spinal stenosis with chronic back pain Presents because of dyspnea. Patient she was walking in a rainy weather for one day and shortly thereafter she started having coughing with shortness of breath and chest tightness. Also she had pain in her upper chest centrally close to nek, her pain is mild nd got aggravated by coughing significantly. Patient was admitted with a diagnosis of chest pain however her cloth sander thinks it is COPD exacerbation. Influenza test was negative. Repeat chest x-ray from today showing a bronchitis Currently patient feels better however she still feels chest tightness and just some coughing although she thinks that bronchodilator therapy up her coughing and pain. Patient was started on Solu-Medrol, bronchodilator and antibiotics. Patient feels better. She is afebrile and blood pressure 120/80. Patient denies chest pain date of discharge, her dyspnea better. Also she is provided with cough syrup. Patient thinks she can be discharged home today and follow-up with her PCP as an outpatient. Patient will be discharged on tapering steroids of steroids, and antibiotic, bronchodilator Patient was cleared for discharge by cardiology team Problems and management plan were discussed with the patient and he verbalized understanding and acceptance Patient was found stable and can be discharged home however he needs follow-up as an outpatient. Patient was instructed to follow up with PCP within one week and patient agrees Gen: patient is a AAOx3, no distress CVS: S1-S2, RRR, no murmur Lungs: B/L CTA, no wheezing. Course secretions sounds in both lungs, mild Abdomen: soft, no distention, no tenderness, positive bowel sounds Extremity: no leg edema or induration Time spent more than 35 minutes Plan - Discharge Summary New Discharge Prescriptions: New Aspirin 325 mg PO DAILY #20 tab Atorvastatin [Lipitor] 40 mg PO DAILY #30 tab Magnesium Oxide [Mag-Ox] 400 mg PO BID 5 Days #10 tab Nitroglycerin Sl Tabs [Nitrostat] 0.4 mg SUBLINGUAL Q5M PRN #20 tab PRN Reason: Chest Pain amLODIPine [Norvasc] 5 mg PO DAILY #30 tab Famotidine [Pepcid] 20 mg PO BID #60 tablet predniSONE 0 mg PO DIRECTED #36 tab guaiFENesin-DM 100-10MG/5ML [Robitussin DM] 10 ml PO Q8H PRN 5 Days #1 bottle PRN Reason: Cough Albuterol Nebulized [Ventolin Nebulized] 2.5 mg INHALATION RT-QID PRN nebu PRN Reason: Shortness Of Breath Or Wheezing Doxycycline [Vibramycin] 100 mg PO BID 4 Days #8 capsule Continue Albuterol Inhaler [Ventolin Hfa Inhaler] 2 puff INHALATION RT-Q6H PRN #1 inh PRN Reason: Shortness Of Breath Discharge Medication List Albuterol Inhaler [Ventolin Hfa Inhaler] 2 puff INHALATION RT-Q6H PRN #1 inh 04/05/19 [Rx] Albuterol Nebulized [Ventolin Nebulized] 2.5 mg INHALATION RT-QID PRN nebu 04/05/19 [Rx] Aspirin 325 mg PO DAILY #20 tab 04/05/19 [Rx] Atorvastatin [Lipitor] 40 mg PO DAILY #30 tab 04/05/19 [Rx] Doxycycline [Vibramycin] 100 mg PO BID 4 Days #8 capsule 04/05/19 [Rx] Famotidine [Pepcid] 20 mg PO BID #60 tablet 04/05/19 [Rx] Magnesium Oxide [Mag-Ox] 400 mg PO BID 5 Days #10 tab 04/05/19 [Rx] Nitroglycerin Sl Tabs [Nitrostat] 0.4 mg SUBLINGUAL Q5M PRN #20 tab 04/05/19 [Rx] amLODIPine [Norvasc] 5 mg PO DAILY #30 tab 04/05/19 [Rx] guaiFENesin-DM 100-10MG/5ML [Robitussin DM] 10 ml PO Q8H PRN 5 Days #1 bottle 04/05/19 [Rx] predniSONE 0 mg PO DIRECTED #36 tab 04/05/19 [Rx] Follow up Appointment(s)/Referral(s): Joanie Carlson MD [Primary Care Provider] - 1-2 days Óscar Chi MD [STAFF PHYSICIAN] - 1 Week (lineman ) Alistair Infante MD [STAFF PHYSICIAN] - 04/17/19 10:15 am Patient Instructions/Handouts: Chest Pain (DC), How to Stop Smoking (DC) Discharge Disposition: HOME SELF-CARE
== END 2019-04-05 13:07 | disposition home or self-care (01) ==
LOC: EC 18:41 → 1SOBS 20:34
PROVIDERS: ADMIT Hospitalist; ATTEND Hospitalist
DX: J44.1 Chronic obstructive pulmonary disease with (acute) exacerbation (principal); J06.9 Acute upper respiratory infection, unspecified; K21.9 Gastro-esophageal reflux disease without esophagitis; M19.90 Unspecified osteoarthritis, unspecified site; K76.0 Fatty (change of) liver, not elsewhere classified; M48.00 Spinal stenosis, site unspecified; I11.9 Hypertensive heart disease without heart failure; G89.29 Other chronic pain; M54.9 Dorsalgia, unspecified; Z90.710 Acquired absence of both cervix and uterus; E78.5 Hyperlipidemia, unspecified; Z23 Encounter for immunization; H40.9 Unspecified glaucoma; K85.90 Acute pancreatitis without necrosis or infection, unspecified; K46.9 Unspecified abdominal hernia without obstruction or gangrene; F17.210 Nicotine dependence, cigarettes, uncomplicated; F32.9 Major depressive disorder, single episode, unspecified; Z79.51 Long term (current) use of inhaled steroids; Z87.442 Personal history of urinary calculi; T81.41XA Infection following a procedure, superficial incisional surgical site, initial encounter; Z86.14 Personal history of Methicillin resistant Staphylococcus aureus infection; Z82.49 Family history of ischemic heart disease and other diseases of the circulatory system; H91.90 Unspecified hearing loss, unspecified ear; Z83.3 Family history of diabetes mellitus; Z88.2 Allergy status to sulfonamides; Z88.8 Allergy status to other drugs, medicaments and biological substances; Z91.048 Other nonmedicinal substance allergy status
CPT/HCPCS: 96365; 96366; 96372; 96375; 96376 ×2; 99285; 36415; 94640 ×4; 94760 ×2; 93005; 93306; 85379; 83880; 80061; 80053; 83735; 84484 ×2; 85025 ×2; 85610; 85730; 87040; 87502; 71045; 71046; 90686; G0378 ×3; G0008; J1644 ×2; J2920 ×2; J7512

== ENCOUNTER → 2023-04-26 | Outpatient (CLI) | payer OTHER ==
--- NOTE | 2023-04-26 14:51 | CTL ---
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 COMPARISON: None. TECHNIQUE: Multiple axial non-contrast scans were obtained from approximately the lung apices through the upper abdomen. Coronal and sagittal reformatted images were obtained. Low dose technique was uti lized. CT DLP: 80 mGycm, Automated exposure control for dose reduction was used. CT Contrast: Contrast used: None Oral contrast used: None FINDINGS: ======== Lack of intravenous contrast and low dose technique limits the evaluation of the vascular and soft ti ssue structures. LUNGS: No evidence of pulmonary fibrosis. No evidence of focal consolidation, pneumothorax or pleural effusion. Mild centrilobular emphysema changes. Nodules: RUL: None. RML: None. RLL: Opacity right lower lobe series 9 image 36 possibly atelectasis versus developing groundglas s nodule measuring 4 mm. [place]: None. LLL: None. AIRWAY: Patent and unremarkable. HEART: Size within normal limits. MEDIASTINUM: No gross evidence of adenopathy. VASCULATURE: No aortic aneurysm. MUSCULOSKELETAL: No acute osseous abnormalities SOFT TISSUES/LYMPH NODES: Bilateral breast implants appear intact. LOWER NECK: No significant findings. UPPER ABDOMEN: No significant findings. IMPRESSION: 1. No clinically significant pulmonary nodules. 2. Mild emphysema. CT LUNG RAD AND CT CHEST RECOMMENDATION: Lung-Rad 2 Benign Appearance or Behavior: Continue annual sc reening with LDCT in 12 months. S Modifier (other clinically significant findings): None Recommend smoking cessation (if current smoker), or continuation of smoking cessation (if prior smoke r). Annual screening for lung cancer with low-dose computed tomography is recommended in adults ages 55 to 77 years who have a 30 pack-year smoking history and currently smoke or have quit within the pa st 15 years. Screening should be discontinued once a person has not smoked for 15 years or develops a health problem that substantially limits life expectancy or the ability or willingness to have curat eron lung surgery. Lung rads 2021 [email or web address]
== END | disposition home or self-care (01) ==
LOC: RADCTMAIN 13:47
PROVIDERS: ATTEND Family Medicine
DX: Z12.2 Encounter for screening for malignant neoplasm of respiratory organs (principal); F17.210 Nicotine dependence, cigarettes, uncomplicated; Z86.14 Personal history of Methicillin resistant Staphylococcus aureus infection; J43.2 Centrilobular emphysema
CPT/HCPCS: 71271

== ENCOUNTER 2023-05-31 15:36 | Emergency (ER) | payer OTHER ==
--- NOTE | 2023-05-31 16:17 | ED ---
General Adult HPI - General Chief complaint: Psychiatric Symptoms Stated complaint: Petitioned/Suicidal Time Seen by Provider: 05/31/23 15:55 Source: patient, police, RN notes reviewed, old records reviewed Mode of arrival: ambulatory Limitations: no limitations - History of Present Illness Initial comments: This is a 57-year-old female who presents to the emergency department with a past medical history significant for depression. Patient was brought in by police because she made comments about wanting to kill herself and the fact that if she had a gun she would kill herself. Patient states all her depression and suicidal comments come secondary to the fact her mother hates her. Patient states she has turned both of her siblings against her as well. Patient states she probably really would not kill her self and she does not own a gun. Patient states she is currently living with her boyfriend of a couple of months and states she is only with them because she has no place else to go because her mother kicked her out a month ago. Patient denies any fever chills or cough patient denies any chest pain difficulty breathing shortness of breath. Patient has any abdominal pain. - Related Data Previous Rx's Medication Instructions Recorded Albuterol Inhaler [Ventolin Hfa 2 puff INHALATION RT-Q6H PRN #1 inh 04/05/19 Inhaler] Albuterol Nebulized [Ventolin 2.5 mg INHALATION RT-QID PRN nebu 04/05/19 Nebulized] Aspirin 325 mg PO DAILY #20 tab 04/05/19 Atorvastatin [Lipitor] 40 mg PO DAILY #30 tab 04/05/19 Doxycycline [Vibramycin] 100 mg PO BID 4 Days #8 capsule 04/05/19 Famotidine [Pepcid] 20 mg PO BID #60 tablet 04/05/19 Magnesium Oxide [Mag-Ox] 400 mg PO BID 5 Days #10 tab 04/05/19 Nitroglycerin Sl Tabs [Nitrostat] 0.4 mg SUBLINGUAL Q5M PRN #20 tab 04/05/19 amLODIPine [Norvasc] 5 mg PO DAILY #30 tab 04/05/19 guaiFENesin-DM 100-10MG/5ML 10 ml PO Q8H PRN 5 Days #1 bottle 04/05/19 [Robitussin DM] predniSONE 0 mg PO DIRECTED #36 tab 04/05/19 Allergies Allergy/AdvReac Type Severity Reaction Status Date / Time adhesive tape Allergy Rash/Hives Verified 04/03/19 21:16 pseudoephedrine sulfate Allergy Unknown Verified 04/03/19 21:16 [From Claritin-D 12 Hour] loratadine AdvReac Unknown Verified 04/03/19 21:16 sulfamethoxazole AdvReac Itching Verified 04/03/19 21:16 [From Bactrim] trimethoprim [From Bactrim] AdvReac Itching Verified 04/03/19 21:16 Review of Systems ROS Statement: Those systems with pertinent positive or pertinent negative responses have been documented in the HPI. ROS Other: All systems not noted in ROS Statement are negative. Past Medical History Past Medical History: Asthma, COPD, GERD/Reflux, Liver Disease, Osteoarthritis (OA), Pneumonia Additional Past Medical History / Comment(s): CHRONIC COUGH/SINUS PROBLEMS, uterine FIBROIDS-hysterectomy, pancreatitis, bronchits, "had x1 seizure after taking claritin d", uti's kidney stone-passed on her own, cervical pain with recent surgery and post op abscess treated with ABX, "spinal stenosis", back pain, "abd hernia", fatty liver, glaucoma bilaterally. History of Any Multi-Drug Resistant Organisms: MRSA Date of last positivie culture/infection: 09/2012 MDRO Source:: Lungs Past Surgical History: Breast Surgery, Hysterectomy Additional Past Surgical History / Comment(s): 12/08/15 cervical fusion, BREAST AUGMENTATION bilaterally, colonoscopy-normal, x2, D&C, bilateral eye surgeryx 4 glaucoma Past Anesthesia/Blood Transfusion Reactions: Motion Sickness Additional Past Anesthesia/Blood Transfusion Reaction / Comment(s): clausterphobia Past Psychological History: Depression Past Alcohol Use History: Occasional Past Drug Use History: Marijuana - Past Family History Mother Family Medical History: Congestive Heart Failure (CHF), Diabetes Mellitus, Hyperlipidemia, Hypertension Additional Family Medical History / Comment(s): pacemaker/aicd Father Family Medical History: Myocardial Infarction ([place]) Additional Family Medical History / Comment(s): CABG General Exam - General Exam Comments Initial Comments: GENERAL: Patient is well-developed and well-nourished. Patient is nontoxic and well- hydrated and is in no acute distress. ENT: Neck is soft and supple. No significant lymphadenopathy is noted. Oropharynx is clear. Moist mucous membranes. Neck has full range of motion without eliciting any pain. EYES: The sclera were anicteric and conjunctiva were pink and moist. Extraocular movements were intact and pupils were equal round and reactive to light. Eyelids were unremarkable. PULMONARY: Unlabored respirations. Good breath sounds bilaterally. No audible rales rhonchi or wheezing was noted. CARDIOVASCULAR: There is a regular rate and rhythm without any murmurs gallops or rubs. ABDOMEN: Soft and nontender with normal bowel sounds. SKIN: Skin is clear with no lesions or rashes and otherwise unremarkable. NEUROLOGIC: Patient is alert and oriented x3. Cranial nerves II through XII are grossly intact. Motor and sensory are also intact. Normal speech, volume and content. Symmetrical smile. MUSCULOSKELETAL: Normal extremities with adequate strength and full range of motion. LYMPHATICS: No significant lymphadenopathy is noted PSYCHIATRIC: Patient is tearful and upset that she is here. Patient also states she did make those comments but states she would not really kill himself however later on she stated that something happened to her dog because no one can watch her dog tonight she will kill herself Limitations: no limitations Course Vital Signs 05/31/23 06/01/23 06/01/23 15:38 01:10 01:29 Temperature 97.7 F 98.0 F Pulse Rate 82 77 Respiratory 16 18 Rate Blood Pressure 129/82 176/95 O2 Sat by Pulse 96 99 Oximetry Medical Decision Making - Medical Decision Making Was pt. sent in by a medical professional or institution (, [facility], [facility] [employer], urgent care, hospital, or intermediate...) When possible be specific @ -Patient was sent in by the nursing home Did you speak to anyone other than the patient for history (EMS, parent, family, police, friend...)? What history was obtained from this source @ -Caregiver gave most of the history Did you review nursing and triage notes (agree or disagree)? Why? @ -I reviewed and agree with nursing and triage notes Were old charts reviewed (outside hosp., previous admission, EMS record, old EKG, old radiological studies, urgent care reports/EKG's, intermediate records)? Report findings @ -No old charts were reviewed Differential Diagnosis (chest pain, altered mental status, abdominal pain women, abdominal pain men, vaginal bleeding, weakness, fever, dyspnea, syncope, headache, dizziness, GI bleed, back pain, seizure, CVA, palpatations, mental health, musculoskeletal)? @ -Differential Mental Health Depression, anxiety, bipolar, psychosis, schizophrenia, borderline personality, situational depression, adjustment disorder, behavioral disorder, brain tumor, malingering, substance abuse, encephalopathy, medication reaction, dementia, hypothyroidism, degenerative neurologic disorder, lupus.... This is not meant to be all-inclusive list EKG interpreted by me (3pts min.). @ -As above X-rays interpreted by me (1pt min.). @ -None done CT interpreted by me (1pt min.). @ -None done U/S interpreted by me (1pt. min.). @ -None done What testing was considered but not performed or refused? (CT, X-rays, U/S, labs)? Why? @ -None What meds were considered but not given or refused? Why? @ -None Did you discuss the management of the patient with other professionals (p gyalafessionals i.e. , PA, [facility], lab, RT, psych nurse, addiction social worker, bread wrapper, teacher, chief medical officer, case assembler)? Give summary @ -I spoke with the EPS about the case and they agreed the patient needed to be admitted patient will be transferred to another facility Was smoking cessation discussed for >3mins.? @ -No Was critical care preformed (if so, how long)? @ -No Were there social determinants of health that impacted care today? How? (Homelessness, low income, unemployed, alcoholism, drug addiction, transportation, low edu. Level, literacy, decrease access to med. care, care home, rehab)? @ -No Was there de-escalation of care discussed even if they declined (Discuss DNR or withdrawal of care, Hospice)? DNR status @ -No What co-morbidities impacted this encounter? (DM, HTN, Smoking, COPD, CAD, Cancer, CVA, ARF, Chemo, Hep., AIDS, mental health diagnosis, sleep apnea, morbid obesity)? @ -None Was patient admitted / discharged? Hospital course, mention meds given and route, prescriptions, significant lab abnormalities, going to OR and other pertinent info. @ -Patient was evaluated by EPS EPS spoke with the psychiatrist and we are in agreement that the patient needed to be admitted to a psychiatric facility patient will be transferred to another facility Undiagnosed new problem with uncertain prognosis? @ -No Drug Therapy requiring intensive monitoring for toxicity (Heparin, Nitro, Insulin, Cardizem)? @ -No Were any procedures done? @ -No Diagnosis/symptom? @ -Depression, suicidal ideation Acute, or Chronic, or Acute on Chronic? @ -Acute Uncomplicated (without systemic symptoms) or Complicated (systemic symptoms)? @ -Complicated Side effects of treatment? @ -No Exacerbation, Progression, or Severe Exacerbation? @ -No Poses a threat to life or bodily function? How? (Chest pain, [place], [place], pneumonia, PE, COPD, DKA, ARF, appy, cholecystitis, CVA, Diverticulitis, Homicidal, Suic idal, threat to staff... and all critical care pts) @ -Yes if the patient is not admitted she may commit suicide. - Lab Data Result diagrams: 05/31/23 19:50 05/31/23 19:50 Lab Results 05/31/23 05/31/23 05/31/23 Range/Units 19:50 19:50 19:51 WBC 5.9 (3.8-10.6) k/uL RBC 4.35 (3.80-5.40) m/uL Hgb 14.1 (11.4-16.0) gm/dL Hct 40.8 (34.0-46.0) % MCV 93.9 (80.0-100.0) fL MCH 32.5 (25.0-35.0) pg MCHC 34.6 (31.0-37.0) g/dL RDW 13.4 (11.5-15.5) % Plt Count 230 (150-450) k/uL MPV 9.3 Neutrophils % 62 % Lymphocytes % 27 % Monocytes % 6 % Eosinophils % 3 % Basophils % 1 % Neutrophils # 3.6 (1.3-7.7) k/uL Lymphocytes # 1.6 (1.0-4.8) k/uL Monocytes # 0.3 (0-1.0) k/uL Eosinophils # 0.2 (0-0.7) k/uL Basophils # 0.0 (0-0.2) k/uL Sodium 139 (137-145) mmol/L Potassium 4.1 (3.5-5.1) mmol/L Chloride 105 (98-107) mmol/L Carbon Dioxide 22 (22-30) mmol/L Anion Gap 12 mmol/L BUN 11 (7-17) mg/dL Creatinine 0.67 (0.52-1.04) mg/dL Est GFR (CKD-EPI)AfAm >90 (>60 ml/min/1.73 sqM) Est GFR (CKD-EPI)NonAf >90 (>60 ml/min/1.73 sqM) Glucose 162 H (74-99) mg/dL Calcium 9.5 (8.4-10.2) mg/dL Total Bilirubin 0.3 (0.2-1.3) mg/dL AST 22 (14-36) U/L ALT 24 (4-34) U/L Alkaline Phosphatase 70 (38-126) U/L Total Protein 7.3 (6.3-8.2) g/dL Albumin 4.4 (3.5-5.0) g/dL Urine Color Urine Appearance (Clear) Urine pH (5.0-8.0) Ur Specific [place] (1.001-1.035) Urine Protein (Negative) Urine Glucose (UA) (Negative) Urine Ketones (Negative) Urine Blood (Negative) Urine Nitrite (Negative) Urine Bilirubin (Negative) Urine Urobilinogen (<2.0) mg/dL Ur Leukocyte Esterase (Negative) Urine RBC (0-5) /hpf Urine WBC (0-5) /hpf Ur Squamous Epith Cells (0-4) /hpf Urine Bacteria (None) /hpf Hyaline Casts (0-2) /lpf Urine Mucus (None) /hpf Urine HCG, Qual (Not Detectd) Urine Opiates Screen (NotDetected) Ur Oxycodone Screen (NotDetected) Urine Methadone Screen (NotDetected) Ur Barbiturates Screen (NotDetected) U Tricyclic Antidepress (NotDetected) Ur Phencyclidine Scrn (NotDetected) Ur Amphetamines Screen (NotDetected) U Methamphetamines Scrn (NotDetected) U Benzodiazepines Scrn (NotDetected) Urine Cocaine Screen (NotDetected) U Marijuana (THC) Screen (NotDetected) SARS-CoV-2 (PCR) Not Detected (Not Detectd) 05/31/23 05/31/23 05/31/23 Range/Units 21:10 21:10 21:10 WBC (3.8-10.6) k/uL RBC (3.80-5.40) m/uL Hgb (11.4-16.0) gm/dL Hct (34.0-46.0) % MCV (80.0-100.0) fL MCH (25.0-35.0) pg MCHC (31.0-37.0) g/dL RDW (11.5-15.5) % Plt Count (150-450) k/uL MPV Neutrophils % % Lymphocytes % % Monocytes % % Eosinophils % % Basophils % % Neutrophils # (1.3-7.7) k/uL Lymphocytes # (1.0-4.8) k/uL Monocytes # (0-1.0) k/uL Eosinophils # (0-0.7) k/uL Basophils # (0-0.2) k/uL Sodium (137-145) mmol/L Potassium (3.5-5.1) mmol/L Chloride (98-107) mmol/L Carbon Dioxide (22-30) mmol/L Anion Gap mmol/L BUN (7-17) mg/dL Creatinine (0.52-1.04) mg/dL Est GFR (CKD-EPI)AfAm (>60 ml/min/1.73 sqM) Est GFR (CKD-EPI)NonAf (>60 ml/min/1.73 sqM) Glucose (74-99) mg/dL Calcium (8.4-10.2) mg/dL Total Bilirubin (0.2-1.3) mg/dL AST (14-36) U/L ALT (4-34) U/L Alkaline Phosphatase (38-126) U/L Total Protein (6.3-8.2) g/dL Albumin (3.5-5.0) g/dL Urine Color Light Yellow Urine Appearance Cloudy H (Clear) Urine pH 7.0 (5.0-8.0) Ur Specific [place] 1.019 (1.001-1.035) Urine Protein Negative (Negative) Urine Glucose (UA) Negative (Negative) Urine Ketones Negative (Negative) Urine Blood Negative (Negative) Urine Nitrite Negative (Negative) Urine Bilirubin Negative (Negative) Urine Urobilinogen <2.0 (<2.0) mg/dL Ur Leukocyte Esterase Small H (Negative) Urine RBC 1 (0-5) /hpf Urine WBC 6 H (0-5) /hpf Ur Squamous Epith Cells 9 H (0-4) /hpf Urine Bacteria Moderate H (None) /hpf Hyaline Casts 1 (0-2) /lpf Urine Mucus Rare H (None) /hpf Urine HCG, Qual Not Detected (Not Detectd) Urine Opiates Screen Not Detected (NotDetected) Ur Oxycodone Screen Not Detected (NotDetected) Urine Methadone Screen Not Detected (NotDetected) Ur Barbiturates Screen Not Detected (NotDetected) U Tricyclic Antidepress Detected H (NotDetected) Ur Phencyclidine Scrn Not Detected (NotDetected) Ur Amphetamines Screen Detected H (NotDetected) U Methamphetamines Scrn Not Detected (NotDetected) U Benzodiazepines Scrn Not Detected (NotDetected) Urine Cocaine Screen Not Detected (NotDetected) U Marijuana (THC) Screen Detected H (NotDetected) SARS-CoV-2 (PCR) (Not Detectd) Disposition Clinical Impression: Depression, Suicidal ideation Disposition: TRANSFER TO PSYCH HOSP/UNIT Referrals: Joanie Carlson MD [Primary Care Provider] - 1-2 days
[2023-05-31 20:11] LABS: ALT 24 U/L (4-34); AST 22 U/L (14-36); African American GFR (CKD) >90 (>60 ml/min/1.73 sqM); Albumin 4.4 g/dL (3.5-5.0); Alkaline Phosphatase 70 U/L (38-126); Anion Gap 12 mmol/L; Blood Urea Nitrogen 11 mg/dL (7-17); Calcium 9.5 mg/dL (8.4-10.2); Carbon Dioxide 22 mmol/L (22-30); Chloride 105 mmol/L (98-107); Glucose 162 mg/dL (74-99); Non-African American GFR(CKD) >90 (>60 ml/min/1.73 sqM); Potassium 4.1 mmol/L (3.5-5.1); Sodium 139 mmol/L (137-145); Total Bilirubin 0.3 mg/dL (0.2-1.3); Total Protein 7.3 g/dL (6.3-8.2)
[2023-05-31 20:30] LABS: Basophils % (A) 1 %; Eosinophils # (A) 0.2 k/uL (0-0.7); Eosinophils % (A) 3 %; HCT 40.8 % (34.0-46.0); HGB 14.1 gm/dL (11.4-16.0); Lymphocytes # (A) 1.6 k/uL (1.0-4.8); Lymphocytes % (A) 27 %; MCH 32.5 pg (25.0-35.0); MCHC 34.6 g/dL (31.0-37.0); MCV 93.9 fL (80.0-100.0); Mean Platelet Volume 9.3; Monocytes # (A) 0.3 k/uL (0-1.0); Monocytes % (A) 6 %; Neutrophils # (A) 3.6 k/uL (1.3-7.7); Neutrophils % (A) 62 %; Platelet Count 230 k/uL (150-450); RBC 4.35 m/uL (3.80-5.40); RDW 13.4 % (11.5-15.5); WBC 5.9 k/uL (3.8-10.6)
[2023-05-31 21:29] LABS: Appearance,Urine Cloudy (Clear); Bacteria,Urine Moderate /hpf; Bilirubin,Urine Negative (Negative); Blood,Urine Negative (Negative); Color,Urine Light Yellow; Glucose,Urine (UA) Negative (Negative); Hyaline Casts,Urine 1 /lpf (0-2); Ketones,Urine Negative (Negative); Leukocyte Esterase,Urine Small (Negative); Mucus,Urine Rare /hpf; Nitrite,Urine Negative (Negative); Protein,Urine Negative (Negative); RBC,Urine 1 /hpf (0-5); Specific Gravity,Urine 1.019 (1.001-1.035); Squamous Epithelial Cell,Urine 9 /hpf (0-4); Urobilinogen,Urine <2.0 mg/dL (<2.0); WBC,Urine 6 /hpf (0-5)
[2023-05-31 21:46] LABS: Amphetamine Screen,Urine Detected (NotDetected); Barbiturate Screen,Urine Not Detected (NotDetected); Benzodiazepines Screen,Urine Not Detected (NotDetected); Cocaine Screen,Urine Not Detected (NotDetected); Methadone Screen, Urine Not Detected (NotDetected); Opiate Screen,Urine Not Detected (NotDetected); Oxycodone Screen, Urine Not Detected (NotDetected); Phencyclidine Screen,Urine Not Detected (NotDetected); Tricyclic Antidepressant,Urine Detected (NotDetected); Urn Cannabinoid Scrn Detected (NotDetected)
[2023-06-01] MEDS: CYCLOBENZAPRINE 10 MG TAB PO STA (01:15)
[2023-06-01] MEDS: NICOTINE 21MG/24HR PATCH TRANSDERM STA (01:15)
[2023-06-01 01:39] VITALS: BP 176/95; PULSE 77; RESP 18
[2023-06-01 01:40] VITALS: TEMP 98
== END 2023-06-01 01:36 ==
LOC: EC 15:36
DX: F32.A Depression, unspecified (principal); R45.851 Suicidal ideations; J44.89 Other specified chronic obstructive pulmonary disease; Z20.822 Contact with and (suspected) exposure to COVID-19; Z88.8 Allergy status to other drugs, medicaments and biological substances; Z88.2 Allergy status to sulfonamides; Z88.1 Allergy status to other antibiotic agents
CPT/HCPCS: 82075; 36415; 80053; 85025; 81001; 81025; 80306; 87635; 99285; 96360; S4990

== ENCOUNTER → 2023-09-15 | Day surgery (SDC) | payer OTHER ==
[2023-09-14 11:30] VITALS: BMI 30.9
[~2023-09-15] MED LIST: LACTATED RINGERS 1,000 ML IV SCH; LIDOCAINE 1% (10MG/ML) FOR IV START INTRADERMA PRN; PROPOFOL 10 MG/ML 20 ML VIAL IV ONE
[2023-09-15] MEDS: IV FLUID CONTINUATION 1,000 ML IV ONE (09:05)
[2023-09-15 09:13] VITALS: TEMP 97
[2023-09-15 09:22] LABS: Glucose,Whole Blood 141 mg/dL (70-110)
--- NOTE | 2023-09-15 09:51 | P.GSHP ---
History of Present Illness H&P Date: 09/15/23 Chief Complaint: screening colonoscopy this a 58-year-old female who presents today for screening colonoscopy. Patient denies a significant GI complaints Past Medical History Past Medical History: Asthma, COPD, Diabetes Mellitus, GERD/Reflux, Liver Disease, Osteoarthritis (OA), Pneumonia Additional Past Medical History / Comment(s): CHRONIC COUGH/SINUS PROBLEMS, uterine FIBROIDS-hysterectomy, pancreatitis, bronchits, "had x1 seizure after taking claritin d", uti's kidney stone-passed on her own, cervical pain with recent surgery and post op abscess treated with ABX, "spinal stenosis", back pain, "abd hernia", fatty liver, hiatal hernia History of Any Multi-Drug Resistant Organisms: MRSA Date of last positivie culture/infection: 09/2012 MDRO Source:: Lungs Past Surgical History: Back Surgery, Breast Surgery, Section, Hernia Repair, Hysterectomy Additional Past Surgical History / Comment(s): 12/08/15 cervical fusion, BREAST AUGMENTATION bilaterally, colonoscopy-normal, x2, D&C, bilateral laser surgery Past Anesthesia/Blood Transfusion Reactions: Motion Sickness Additional Past Anesthesia/Blood Transfusion Reaction / Comment(s): clausterphobia, no blood transfusion Smoking Status: Current every day smoker - Past Family History Mother Family Medical History: Congestive Heart Failure (CHF), Diabetes Mellitus, Hyperlipidemia, Hypertension Additional Family Medical History / Comment(s): pacemaker/aicd Father Family Medical History: Myocardial Infarction ([place]) Additional Family Medical History / Comment(s): CABG Medications and Allergies Home Medications Medication Instructions Recorded Confirmed Type Albuterol Inhaler [Ventolin Hfa 2 puff INHALATION RT-Q6H PRN #1 inh 04/05/19 09/15/23 Rx Inhaler] ARIPiprazole IM SYRINGE [Abilify 400 mg IM QMONTHLY 09/14/23 09/15/23 History Maintena Syringe] Cetirizine HCl 10 mg PO DAILY 09/14/23 09/15/23 History Cholecalciferol (Vitamin D3) 50 mcg PO DAILY 09/14/23 09/15/23 History [Vitamin D3 (50 Mcg = 2000 Iu)] Cyclobenzaprine [Flexeril] 5 mg PO TID PRN 09/14/23 09/15/23 History DULoxetine HCL [Cymbalta] 60 mg PO BID 09/14/23 09/15/23 History Fenofibrate 145 mg PO DAILY 09/14/23 09/15/23 History Montelukast [Singulair] 10 mg PO DAILY 09/14/23 09/15/23 History hydrOXYzine HCL 25 mg PO Q8HR PRN 09/14/23 09/15/23 History metFORMIN HCL 1,000 mg PO BID 09/14/23 09/15/23 History Allergies Allergy/AdvReac Type Severity Reaction Status Date / Time adhesive tape Allergy Rash/Hives Verified 09/15/23 09:08 pseudoephedrine sulfate Allergy Unknown Verified 09/15/23 09:08 [From Claritin-D 12 Hour] loratadine AdvReac Unknown Verified 09/15/23 09:08 sulfamethoxazole AdvReac Itching Verified 09/15/23 09:08 [From Bactrim] trimethoprim [From Bactrim] AdvReac Itching Verified 09/15/23 09:08 Surgical - Exam Vital Signs Temp Pulse Resp BP Pulse Ox 97 F L 70 16 114/79 99 09/15/23 09:05 09/15/23 09:05 09/15/23 09:05 09/15/23 09:05 09/15/23 09:05 - General well developed, well nourished, no distress - Eyes PERRL - ENT normal pinna - Neck no masses - Respiratory normal expansion - Cardiovascular Rhythm: regular - Abdomen Abdomen: soft, non tender Results - Labs Abnormal Lab Results - Last 24 Hours (Table) 09/15/23 Range/Units 09:21 POC Glucose (mg/dL) 141 H (70-110) mg/dL Assessment and Plan Assessment: we'll perform screening colonoscopy.
--- NOTE | 2023-09-15 10:04 | P.OP ---
Date of Procedure: 09/15/23 Preoperative Diagnosis: screening colonoscopy Postoperative Diagnosis: diverticulosis Procedure(s) Performed: colonoscopy Anesthesia: MAC Surgeon: Romie Land Pathology: none sent Condition: stable Description of Procedure: the patient's placed on the endoscopy table in the lateral position. IV sedation. Digital rectal exam was performed. This revealed no abnormalities. Flexible colonoscope was then placed patient anus and passed throughout the entire colon. Ileocecal valve was visualized. Cecum, ascending and transverse colon appeared normal. The descending and sigmoid colon had mild diverticular changes. Scope was then brought back the rectum and this appeared normal. The scope was withdrawn for patient.
[2023-09-15 10:33] VITALS: BP 121/79; PULSE 64; RESP 20
== END | disposition home or self-care (01) ==
LOC: ORWHC2ENDO 08:34
PROVIDERS: ATTEND Surgery
DX: Z12.11 Encounter for screening for malignant neoplasm of colon (principal); K57.30 Diverticulosis of large intestine without perforation or abscess without bleeding; E11.9 Type 2 diabetes mellitus without complications; J44.89 Other specified chronic obstructive pulmonary disease; K21.9 Gastro-esophageal reflux disease without esophagitis; K76.0 Fatty (change of) liver, not elsewhere classified; M19.90 Unspecified osteoarthritis, unspecified site; F17.200 Nicotine dependence, unspecified, uncomplicated; Z79.84 Long term (current) use of oral hypoglycemic drugs; Z87.442 Personal history of urinary calculi; Z88.1 Allergy status to other antibiotic agents; Z88.2 Allergy status to sulfonamides; Z90.710 Acquired absence of both cervix and uterus; Z98.890 Other specified postprocedural states; Z87.440 Personal history of urinary (tract) infections
CPT/HCPCS: 45378; J2704